=== PATIENT | female | born 1940 | race Caucasian/White ===

== ENCOUNTER 2020-11-02 16:37 | Inpatient (IN) | payer MEDICARE ==
[2020-11-02] MEDS ORDERED: Ibuprofen 600 MG TAB PO PRN (17:37)
[2020-11-02] MEDS ORDERED: ALPRAZolam 0.5 MG TAB PO PRN (17:37)
[2020-11-02] MEDS ORDERED: Meclizine HCl 25 MG TAB PO PRN (18:08)
[2020-11-02] MEDS: Acetaminophen 500 MG TAB PO SCH (18:22)
[2020-11-02] MEDS: traMADol HCl 50 MG TAB PO SCH (18:23)
[2020-11-02] MEDS: Atorvastatin Calcium 10 MG TAB PO SCH (21:09)
[2020-11-02] MEDS: Gabapentin 400 MG CAP PO SCH (21:09)
[2020-11-02] MEDS: Lisinopril 20 MG TAB PO SCH (21:10)
[2020-11-02] MEDS: Nitrofurantoin Monohyd/M-Cryst 100 MG CAP PO SCH (21:11)
[2020-11-03] MEDS: Acetaminophen 500 MG TAB PO SCH ×4 (00:01→17:27)
[2020-11-03] MEDS: traMADol HCl 50 MG TAB PO SCH ×4 (00:02→17:27)
[2020-11-03 05:43] LABS: INR-International Normal Ratio 2.1; Prothrombin Time 23.7 sec (12.0-14.7)
[2020-11-03] MEDS: Nitrofurantoin Monohyd/M-Cryst 100 MG CAP PO SCH ×2 (09:56→20:48)
[2020-11-03] MEDS: Potassium Chloride 10 MEQ TAB PO SCH (09:56)
[2020-11-03] MEDS: Furosemide 20 MG TAB PO SCH (09:56)
[2020-11-03] MEDS: Lisinopril 20 MG TAB PO SCH ×2 (09:56→20:48)
[2020-11-03] MEDS: Carvedilol 3.125 MG TAB PO SCH ×2 (09:56→17:27)
[2020-11-03] MEDS: Polyethylene Glycol 3350 17 GM Packet PO SCH (09:57)
[2020-11-03] MEDS: predniSONE 5 MG TAB PO SCH (09:57)
[2020-11-03] MEDS: Gabapentin 400 MG CAP PO SCH ×2 (09:59→20:49)
[2020-11-03] MEDS: Warfarin Sodium 2 MG TAB PO SCH (17:28)
[2020-11-03] MEDS: Atorvastatin Calcium 10 MG TAB PO SCH (20:49)
[2020-11-04] MEDS: Acetaminophen 500 MG TAB PO SCH ×5 (00:38→23:51)
[2020-11-04] MEDS: traMADol HCl 50 MG TAB PO SCH ×5 (00:38→23:51)
[2020-11-04 07:02] LABS: INR-International Normal Ratio 1.7; Prothrombin Time 20.6 sec (12.0-14.7)
[2020-11-04] MEDS: Potassium Chloride 10 MEQ TAB PO SCH (09:04)
[2020-11-04] MEDS: Carvedilol 3.125 MG TAB PO SCH ×2 (09:04→17:20)
[2020-11-04] MEDS: Polyethylene Glycol 3350 17 GM Packet PO SCH (09:04)
[2020-11-04] MEDS: Gabapentin 400 MG CAP PO SCH ×2 (09:04→20:16)
[2020-11-04] MEDS: predniSONE 5 MG TAB PO SCH (09:05)
[2020-11-04] MEDS: Lisinopril 20 MG TAB PO SCH ×2 (09:05→20:16)
[2020-11-04] MEDS: Nitrofurantoin Monohyd/M-Cryst 100 MG CAP PO SCH ×2 (09:05→20:16)
[2020-11-04] MEDS: Furosemide 20 MG TAB PO SCH (09:05)
[2020-11-04] MEDS: Warfarin Sodium 2 MG TAB PO SCH (17:21)
[2020-11-04] MEDS: Atorvastatin Calcium 10 MG TAB PO SCH (20:15)
[2020-11-05] MEDS: Acetaminophen 500 MG TAB PO SCH ×3 (05:39→17:20)
[2020-11-05] MEDS: traMADol HCl 50 MG TAB PO SCH ×3 (05:40→17:19)
[2020-11-05 05:45] LABS: INR-International Normal Ratio 1.9
[2020-11-05] MEDS: Nitrofurantoin Monohyd/M-Cryst 100 MG CAP PO SCH ×2 (08:03→20:40)
[2020-11-05] MEDS: Furosemide 20 MG TAB PO SCH (08:03)
[2020-11-05] MEDS: predniSONE 5 MG TAB PO SCH (08:03)
[2020-11-05] MEDS: Polyethylene Glycol 3350 17 GM Packet PO SCH (08:04)
[2020-11-05] MEDS: Potassium Chloride 10 MEQ TAB PO SCH (08:04)
[2020-11-05] MEDS: Baclofen 10 MG TAB PO PRN (08:04)
[2020-11-05] MEDS: Lisinopril 20 MG TAB PO SCH ×2 (08:04→20:39)
[2020-11-05] MEDS: Gabapentin 400 MG CAP PO SCH ×2 (08:05→20:36)
[2020-11-05] MEDS: Carvedilol 3.125 MG TAB PO SCH ×2 (08:09→17:21)
[2020-11-05] MEDS ORDERED: Warfarin Sodium 2 MG TAB PO SCH (17:00)
[2020-11-05] MEDS: Atorvastatin Calcium 10 MG TAB PO SCH (20:38)
[2020-11-06] MEDS: traMADol HCl 50 MG TAB PO SCH ×5 (00:21→23:19)
[2020-11-06] MEDS: Acetaminophen 500 MG TAB PO SCH ×5 (00:23→23:18)
[2020-11-06 05:37] LABS: INR-International Normal Ratio 1.8; Prothrombin Time 21.5 sec (12.0-14.7)
[2020-11-06] MEDS: Lisinopril 20 MG TAB PO SCH ×2 (08:29→20:09)
[2020-11-06] MEDS: Gabapentin 400 MG CAP PO SCH ×2 (08:29→20:08)
[2020-11-06] MEDS: Potassium Chloride 10 MEQ TAB PO SCH (08:29)
[2020-11-06] MEDS: Carvedilol 3.125 MG TAB PO SCH ×2 (08:29→17:17)
[2020-11-06] MEDS: predniSONE 5 MG TAB PO SCH (08:29)
[2020-11-06] MEDS: Nitrofurantoin Monohyd/M-Cryst 100 MG CAP PO SCH ×2 (08:29→20:09)
[2020-11-06] MEDS: Polyethylene Glycol 3350 17 GM Packet PO SCH (08:29)
[2020-11-06] MEDS: Furosemide 20 MG TAB PO SCH (08:29)
[2020-11-06] MEDS: Baclofen 10 MG TAB PO PRN ×2 (08:29→19:37)
[2020-11-06] MEDS: Warfarin Sodium 1 MG TAB PO SCH (17:17)
[2020-11-06] MEDS: Atorvastatin Calcium 10 MG TAB PO SCH (20:09)
[2020-11-06] MEDS: Ibuprofen 600 MG TAB PO PRN (20:16)
[2020-11-07] MEDS: traMADol HCl 50 MG TAB PO SCH ×4 (05:29→23:39)
[2020-11-07] MEDS: Acetaminophen 500 MG TAB PO SCH ×4 (05:30→23:39)
[2020-11-07 05:46] LABS: INR-International Normal Ratio 2.1; Prothrombin Time 23.7 sec (12.0-14.7)
[2020-11-07 05:55] LABS: #Basophils 0.1 thou/uL (0.0-0.2); #Eosinphils 0.4 thou/uL (0.0-0.7); #Lymphocytes 1.7 thou/uL (1.20-3.40); #Monocytes 0.6 thou/uL (0.11-0.59); #Neutrophils 2.1 thou/uL (1.40-6.50); %Basophils 1.3 % (0.0-1.0); %Eosinophils 7.7 % (0.0-10.0); %Lymphocytes 35.3 % (21.0-51.0); %Monocytes 12.2 % (0.0-10.0); %Neutrophils 43.5 % (42.0-75.0); Anisocytosis SLIGHT = 6-15 cells (100X) (0-5/hpf); Hemoglobin 8.9 g/dL (12.0-16.0); Hypochromia SLIGHT = 6-15 cells (100X) (0-5/hpf); MDiff Complete? YES; Mean Corpuscular HGB CONC 29.8 g/dL (32.0-36.0); Mean Corpuscular Hemoglobin 25.9 pg (27.0-31.0); Mean Corpuscular Volume 86.9 fL (78.0-98.0); Mean Platelet Volume 6.5 fL (7.4-10.4); Ovalocytes SLIGHT = 2-5 cells (100X) (0-1/hpf); Platelet Count 398 thou/uL (130-400); Platelet Morphology Comment Appears Adequate; Poikilocytosis SLIGHT = 6-15 cells (100X) (0-5/hpf); RBC Distribution Width 25.8 % (11.5-14.5); Red Blood Cell (RBC) Count 3.46 mill/uL (4.20-5.40); White Blood Cell (WBC) Count 4.9 thou/uL (4.8-10.8)
[2020-11-07 05:58] LABS: Anion Gap 10 mmol/L (10-20); BUN (Urea Nitrogen) 19 mg/dL (9.8-20.1); Calc. Creatinine Clearance 59 mL/min (70-130); Calcium 8.3 mg/dL (7.8-10.44); Carbon Dioxide 28 mmol/L (23-31); Chloride 103 mmol/L (98-107); Glucose 85 mg/dL (83-110); Potassium 4.3 mmol/L (3.5-5.1); Sodium 137 mmol/L (136-145)
[2020-11-07] MEDS: Potassium Chloride 10 MEQ TAB PO SCH (08:51)
[2020-11-07] MEDS: Gabapentin 400 MG CAP PO SCH ×2 (08:51→20:50)
[2020-11-07] MEDS: Polyethylene Glycol 3350 17 GM Packet PO SCH (08:51)
[2020-11-07] MEDS: Carvedilol 3.125 MG TAB PO SCH ×2 (08:51→17:43)
[2020-11-07] MEDS: Nitrofurantoin Monohyd/M-Cryst 100 MG CAP PO SCH ×2 (08:52→20:51)
[2020-11-07] MEDS: Lisinopril 20 MG TAB PO SCH ×2 (08:52→20:52)
[2020-11-07] MEDS: Furosemide 20 MG TAB PO SCH (08:52)
[2020-11-07] MEDS: predniSONE 5 MG TAB PO SCH (08:52)
[2020-11-07] MEDS: Warfarin Sodium 1 MG TAB PO SCH (17:43)
[2020-11-07] MEDS: Ibuprofen 600 MG TAB PO PRN (20:52)
[2020-11-07] MEDS: Atorvastatin Calcium 10 MG TAB PO SCH (20:53)
[2020-11-08] MEDS: Acetaminophen 500 MG TAB PO SCH ×4 (05:21→23:54)
[2020-11-08] MEDS: traMADol HCl 50 MG TAB PO SCH ×4 (05:22→23:55)
[2020-11-08 05:29] LABS: INR-International Normal Ratio 2.3; Prothrombin Time 26.2 sec (12.0-14.7)
[2020-11-08] MEDS: Polyethylene Glycol 3350 17 GM Packet PO SCH (08:03)
[2020-11-08] MEDS: Gabapentin 400 MG CAP PO SCH ×2 (08:03→20:25)
[2020-11-08] MEDS: Nitrofurantoin Monohyd/M-Cryst 100 MG CAP PO SCH ×2 (08:03→20:27)
[2020-11-08] MEDS: Potassium Chloride 10 MEQ TAB PO SCH (08:04)
[2020-11-08] MEDS: predniSONE 5 MG TAB PO SCH (08:04)
[2020-11-08] MEDS: Carvedilol 3.125 MG TAB PO SCH ×2 (08:04→17:46)
[2020-11-08] MEDS: Furosemide 20 MG TAB PO SCH (08:04)
[2020-11-08] MEDS: Lisinopril 20 MG TAB PO SCH ×2 (08:05→20:26)
[2020-11-08] MEDS: Ibuprofen 600 MG TAB PO PRN ×2 (08:11→16:15)
[2020-11-08] MEDS: Warfarin Sodium 1 MG TAB PO SCH (17:47)
[2020-11-08] MEDS: Atorvastatin Calcium 10 MG TAB PO SCH (20:25)
[2020-11-09 05:19] LABS: INR-International Normal Ratio 2.4; Prothrombin Time 26.5 sec (12.0-14.7)
[2020-11-09] MEDS: Acetaminophen 500 MG TAB PO SCH ×4 (05:58→23:21)
[2020-11-09] MEDS: traMADol HCl 50 MG TAB PO SCH ×4 (05:59→23:19)
[2020-11-09] MEDS: Potassium Chloride 10 MEQ TAB PO SCH (08:29)
[2020-11-09] MEDS: Polyethylene Glycol 3350 17 GM Packet PO SCH (08:29)
[2020-11-09] MEDS: predniSONE 5 MG TAB PO SCH (08:29)
[2020-11-09] MEDS: Carvedilol 3.125 MG TAB PO SCH ×2 (08:29→17:08)
[2020-11-09] MEDS: Nitrofurantoin Monohyd/M-Cryst 100 MG CAP PO SCH ×2 (08:29→20:36)
[2020-11-09] MEDS: Furosemide 20 MG TAB PO SCH (08:29)
[2020-11-09] MEDS: Gabapentin 400 MG CAP PO SCH ×2 (08:29→20:36)
[2020-11-09] MEDS: Lisinopril 20 MG TAB PO SCH ×2 (08:30→20:36)
[2020-11-09] MEDS: Ibuprofen 600 MG TAB PO PRN ×2 (08:30→20:37)
[2020-11-09] MEDS: Baclofen 10 MG TAB PO PRN (08:30)
[2020-11-09] MEDS: Warfarin Sodium 1 MG TAB PO SCH (17:09)
[2020-11-09] MEDS: Atorvastatin Calcium 10 MG TAB PO SCH (20:36)
[2020-11-10] MEDS: traMADol HCl 50 MG TAB PO SCH ×4 (05:25→23:29)
[2020-11-10] MEDS: Acetaminophen 500 MG TAB PO SCH ×4 (05:26→23:29)
[2020-11-10 05:42] LABS: INR-International Normal Ratio 2.6; Prothrombin Time 28.7 sec (12.0-14.7)
[2020-11-10] MEDS: Lisinopril 20 MG TAB PO SCH ×2 (08:19→21:12)
[2020-11-10] MEDS: Furosemide 20 MG TAB PO SCH (08:19)
[2020-11-10] MEDS: Baclofen 10 MG TAB PO PRN ×2 (08:19→14:27)
[2020-11-10] MEDS: Gabapentin 400 MG CAP PO SCH ×2 (08:19→21:13)
[2020-11-10] MEDS: Carvedilol 3.125 MG TAB PO SCH ×2 (08:19→17:11)
[2020-11-10] MEDS: Potassium Chloride 10 MEQ TAB PO SCH (08:19)
[2020-11-10] MEDS: Polyethylene Glycol 3350 17 GM Packet PO SCH (08:20)
[2020-11-10] MEDS: predniSONE 5 MG TAB PO SCH (08:20)
[2020-11-10] MEDS: Nitrofurantoin Monohyd/M-Cryst 100 MG CAP PO SCH ×2 (08:20→21:14)
[2020-11-10] MEDS: Warfarin Sodium 1 MG TAB PO SCH (17:10)
[2020-11-10] MEDS: Atorvastatin Calcium 10 MG TAB PO SCH (21:13)
[2020-11-11 05:28] LABS: INR-International Normal Ratio 2.7; Prothrombin Time 29.2 sec (12.0-14.7)
[2020-11-11] MEDS: traMADol HCl 50 MG TAB PO SCH ×4 (05:37→23:15)
[2020-11-11] MEDS: Acetaminophen 500 MG TAB PO SCH ×4 (05:37→23:15)
[2020-11-11] MEDS: Baclofen 10 MG TAB PO PRN (08:30)
[2020-11-11] MEDS: Gabapentin 400 MG CAP PO SCH ×2 (08:31→21:08)
[2020-11-11] MEDS: Potassium Chloride 10 MEQ TAB PO SCH (08:31)
[2020-11-11] MEDS: Carvedilol 3.125 MG TAB PO SCH ×2 (08:31→15:54)
[2020-11-11] MEDS: predniSONE 5 MG TAB PO SCH (08:31)
[2020-11-11] MEDS: Furosemide 20 MG TAB PO SCH (08:31)
[2020-11-11] MEDS: Lisinopril 20 MG TAB PO SCH ×2 (08:31→21:08)
[2020-11-11] MEDS: Ibuprofen 600 MG TAB PO PRN ×2 (08:32→15:53)
[2020-11-11] MEDS: Polyethylene Glycol 3350 17 GM Packet PO SCH (08:32)
[2020-11-11] MEDS: Warfarin Sodium 1 MG TAB PO SCH (15:54)
[2020-11-11] MEDS: Atorvastatin Calcium 10 MG TAB PO SCH (21:07)
[2020-11-12] MEDS: Acetaminophen 500 MG TAB PO SCH ×2 (05:16→12:03)
[2020-11-12] MEDS: traMADol HCl 50 MG TAB PO SCH ×3 (05:17→17:35)
[2020-11-12] MEDS: Furosemide 20 MG TAB PO SCH (08:23)
[2020-11-12] MEDS: Baclofen 10 MG TAB PO PRN ×2 (08:23→15:54)
[2020-11-12] MEDS: Potassium Chloride 10 MEQ TAB PO SCH (08:23)
[2020-11-12] MEDS: Gabapentin 400 MG CAP PO SCH ×2 (08:24→21:00)
[2020-11-12] MEDS: Ibuprofen 600 MG TAB PO PRN ×2 (08:24→15:54)
[2020-11-12] MEDS: Lisinopril 20 MG TAB PO SCH ×2 (08:25→20:59)
[2020-11-12] MEDS: Carvedilol 3.125 MG TAB PO SCH ×2 (08:25→17:36)
[2020-11-12] MEDS: Polyethylene Glycol 3350 17 GM Packet PO SCH (08:26)
[2020-11-12] MEDS: predniSONE 5 MG TAB PO SCH (08:26)
[2020-11-12] MEDS ORDERED: Miconazole 2% Vaginal Cream 45 GM TUBE VAG SCH (10:15)
[2020-11-12] MEDS ORDERED: Fluconazole 100 MG TAB PO SCH (10:15)
[2020-11-12 16:06] VITALS: BMI 23.8
[2020-11-12] MEDS ORDERED: Acetaminophen 500 MG TAB PO PRN (17:25)
[2020-11-12] MEDS: Warfarin Sodium 1 MG TAB PO SCH (17:36)
[2020-11-12] MEDS: Atorvastatin Calcium 10 MG TAB PO SCH (20:59)
[2020-11-12] MEDS: Miconazole 2% Vaginal Cream 45 GM TUBE VAG SCH (21:03)
[2020-11-13] MEDS: traMADol HCl 50 MG TAB PO SCH ×4 (00:46→17:25)
[2020-11-13 05:36] LABS: Prothrombin Time 31.9 sec (12.0-14.7)
[2020-11-13] MEDS: Carvedilol 3.125 MG TAB PO SCH ×2 (08:23→17:25)
[2020-11-13] MEDS: Polyethylene Glycol 3350 17 GM Packet PO SCH (08:23)
[2020-11-13] MEDS: predniSONE 5 MG TAB PO SCH (08:24)
[2020-11-13] MEDS: Gabapentin 400 MG CAP PO SCH ×2 (08:24→20:50)
[2020-11-13] MEDS: Lisinopril 20 MG TAB PO SCH ×2 (08:24→20:49)
[2020-11-13] MEDS: Potassium Chloride 10 MEQ TAB PO SCH (08:24)
[2020-11-13] MEDS: Furosemide 20 MG TAB PO SCH (08:24)
[2020-11-13] MEDS: Ibuprofen 600 MG TAB PO PRN (12:08)
[2020-11-13] MEDS: Warfarin Sodium 1 MG TAB PO SCH (17:26)
[2020-11-13] MEDS: Atorvastatin Calcium 10 MG TAB PO SCH (20:49)
[2020-11-13] MEDS: Miconazole 2% Vaginal Cream 45 GM TUBE VAG SCH (20:52)
[2020-11-14] MEDS: traMADol HCl 50 MG TAB PO SCH ×5 (00:07→23:02)
[2020-11-14 05:22] LABS: INR-International Normal Ratio 3.4; Prothrombin Time 35.1 sec (12.0-14.7)
[2020-11-14] MEDS: Ibuprofen 600 MG TAB PO PRN (07:29)
[2020-11-14] MEDS: Furosemide 20 MG TAB PO SCH (08:56)
[2020-11-14] MEDS: Carvedilol 3.125 MG TAB PO SCH ×2 (08:56→17:46)
[2020-11-14] MEDS: Potassium Chloride 10 MEQ TAB PO SCH (08:57)
[2020-11-14] MEDS: Lisinopril 20 MG TAB PO SCH ×2 (08:57→20:47)
[2020-11-14] MEDS: Gabapentin 400 MG CAP PO SCH ×2 (08:57→20:50)
[2020-11-14] MEDS: predniSONE 5 MG TAB PO SCH (08:57)
[2020-11-14] MEDS: Polyethylene Glycol 3350 17 GM Packet PO SCH (08:58)
[2020-11-14] MEDS: Atorvastatin Calcium 10 MG TAB PO SCH (20:47)
[2020-11-14] MEDS: Miconazole 2% Vaginal Cream 45 GM TUBE VAG SCH (20:50)
[2020-11-15] MEDS: traMADol HCl 50 MG TAB PO SCH ×4 (05:00→23:38)
[2020-11-15] MEDS: Ibuprofen 600 MG TAB PO PRN ×2 (05:01→19:20)
[2020-11-15 05:35] LABS: INR-International Normal Ratio 3.5; Prothrombin Time 35.9 sec (12.0-14.7)
[2020-11-15] MEDS: Gabapentin 400 MG CAP PO SCH ×2 (08:18→20:49)
[2020-11-15] MEDS: Carvedilol 3.125 MG TAB PO SCH ×2 (08:19→16:59)
[2020-11-15] MEDS: Furosemide 20 MG TAB PO SCH (08:19)
[2020-11-15] MEDS: Lisinopril 20 MG TAB PO SCH ×2 (08:19→20:49)
[2020-11-15] MEDS: Potassium Chloride 10 MEQ TAB PO SCH (08:19)
[2020-11-15] MEDS: Baclofen 10 MG TAB PO PRN ×2 (08:19→16:59)
[2020-11-15] MEDS: predniSONE 5 MG TAB PO SCH (08:19)
[2020-11-15] MEDS: Polyethylene Glycol 3350 17 GM Packet PO SCH (08:19)
[2020-11-15] MEDS: Atorvastatin Calcium 10 MG TAB PO SCH (20:50)
[2020-11-15] MEDS: Miconazole 2% Vaginal Cream 45 GM TUBE VAG SCH (23:46)
[2020-11-16] MEDS: traMADol HCl 50 MG TAB PO SCH ×2 (05:31→12:05)
[2020-11-16 05:57] LABS: INR-International Normal Ratio 3.1; Prothrombin Time 32.8 sec (12.0-14.7)
[2020-11-16 07:32] VITALS: TEMP 98.1
[2020-11-16] MEDS: Baclofen 10 MG TAB PO PRN ×2 (08:14→14:01)
[2020-11-16] MEDS: Gabapentin 400 MG CAP PO SCH (08:14)
[2020-11-16] MEDS: Potassium Chloride 10 MEQ TAB PO SCH (08:15)
[2020-11-16] MEDS: Ibuprofen 600 MG TAB PO PRN (08:15)
[2020-11-16] MEDS: Lisinopril 20 MG TAB PO SCH (08:15)
[2020-11-16] MEDS: predniSONE 5 MG TAB PO SCH (08:15)
[2020-11-16] MEDS: Carvedilol 3.125 MG TAB PO SCH (08:15)
[2020-11-16] MEDS: Furosemide 20 MG TAB PO SCH (08:15)
[2020-11-16 08:16] VITALS: BP 138/56
[2020-11-16] MEDS: Polyethylene Glycol 3350 17 GM Packet PO SCH (08:16)
[2020-11-16] MEDS ORDERED: Baclofen 10 MG TAB PO PRN (15:17)
[2020-11-16] MEDS ORDERED: Warfarin Sodium 1 MG TAB PO SCH (17:00)
[2020-11-19] MEDS ORDERED: Fluconazole 100 MG TAB PO SCH (09:00)
== END 2020-11-16 16:25 | disposition home health service (06) | DRG 560 ==
LOC: MADMS 16:37
PROVIDERS: ADMIT Family Medicine; ATTEND Family Medicine
DX: S72.21XD Displaced subtrochanteric fracture of right femur, subsequent encounter for closed fracture with routine healing (principal); N39.0 Urinary tract infection, site not specified; E78.5 Hyperlipidemia, unspecified; G43.909 Migraine, unspecified, not intractable, without status migrainosus; I25.10 Atherosclerotic heart disease of native coronary artery without angina pectoris; K21.9 Gastro-esophageal reflux disease without esophagitis; M81.0 Age-related osteoporosis without current pathological fracture; N99.89 Other postprocedural complications and disorders of genitourinary system; R33.8 Other retention of urine; F41.9 Anxiety disorder, unspecified; R53.81 Other malaise; D64.9 Anemia, unspecified; I11.9 Hypertensive heart disease without heart failure; Y83.8 Other surgical procedures as the cause of abnormal reaction of the patient, or of later complication, without mention of misadventure at the time of the procedure; B95.2 Enterococcus as the cause of diseases classified elsewhere; B37.3 Candidiasis of vulva and vagina; R26.81 Unsteadiness on feet; B96.1 Klebsiella pneumoniae [K. pneumoniae] as the cause of diseases classified elsewhere; W19.XXXD Unspecified fall, subsequent encounter; Z88.0 Allergy status to penicillin; Z88.8 Allergy status to other drugs, medicaments and biological substances; Z91.018 Allergy to other foods; Z79.01 Long term (current) use of anticoagulants; Z79.899 Other long term (current) drug therapy; Z86.711 Personal history of pulmonary embolism; Z86.73 Personal history of transient ischemic attack (TIA), and cerebral infarction without residual deficits; Z90.49 Acquired absence of other specified parts of digestive tract; Z90.89 Acquired absence of other organs; Z98.890 Other specified postprocedural states; Z79.82 Long term (current) use of aspirin; Z79.52 Long term (current) use of systemic steroids
CPT/HCPCS: 36415; 80048; 82728; 85025; 85610; J7512

== ENCOUNTER 2020-11-29 12:48 | Outpatient (CLI) | payer MEDICARE ==
[2020-11-29 13:09] LABS: INR-International Normal Ratio 2.4; Prothrombin Time 26.6 sec (12.0-14.7)
== END 2020-11-29 12:49 | disposition home or self-care (01) ==
LOC: MADLAB 12:48
PROVIDERS: ATTEND Family Medicine
DX: I10 Essential (primary) hypertension (principal)
CPT/HCPCS: 85610

== ENCOUNTER 2020-11-30 10:54 | Outpatient (CLI) | payer MEDICARE ==
[2020-11-30 12:09] LABS: Bilirubin Negative (Negative); Blood, Urine Trace (Negative); Clarity Clear (Clear); Glucose, Urine (Dipstick) Negative (Negative); Ketone, Urine Negative (Negative); Leukocyte Negative (Negative); Nitrite Negative (Negative); Protein, Urine (Dipstick) Negative (Neg-Trace); Urobilinogen 0.2 mg/dL (Less than 2); pH, Urine 6.5 (5.0-9.0)
[2020-11-30 12:14] LABS: Bacteria/HPF Rare-Few HPF (None Seen); RBC/HPF 0-3 HPF (0-3); Squamous Epithelial 0-3 HPF (0-3); WBC/HPF 0-3 HPF (0-3)
== END 2020-11-30 10:55 | disposition home or self-care (01) ==
LOC: MADLAB 10:54
PROVIDERS: ATTEND Family Medicine
DX: N39.0 Urinary tract infection, site not specified (principal)
CPT/HCPCS: 81001; 87086